=== PATIENT | female | born 1980 | race Hispanic/Latino ===

== ENCOUNTER 2018-07-12 21:26 | Inpatient (IN) | payer SELFPAY ==
[~2018-07-12] VITALS: Ht 152.4 cm; Wt 63.8 kg
[2018-07-12] MEDS ORDERED: LIDOCAINE HCL 1% LOCAL INJ 20 ML VIAL INJ ONE (21:45)
[2018-07-12] MEDS ORDERED: AZTREONAM 1 GM/NS 50 ML 50 ML IV SCH (22:00)
[2018-07-12 22:47] LABS: BASOPHILS % 0.2 % (0.0-1.0); EOSINOPHILS # (AUTO) 0.1 (0.0-0.4); HEMATOCRIT 31.8 % (34.2-44.1); HEMOGLOBIN 10.5 g/dL (12.0-16.0); LYMPHOCYTES # (AUTO) 2.2 (1.0-3.2); LYMPHOCYTES % 24.9 % (18.0-39.1); MEAN CORPUSCULAR HEMOGLOBIN 26.4 pg (28-32); MEAN CORPUSCULAR VOLUME 80.1 fL (81-99); MONOCYTES # (AUTO) 0.9 (0.2-0.8); MONOCYTES % 10.2 % (4.4-11.3); NEUTROPHILS # (AUTO) 5.7 (2.1-6.9); NEUTROPHILS % 63.1 % (38.7-80.0); PLATELET COUNT 262 x10e3/uL (140-360); RED BLOOD COUNT 3.97 x10e6/uL (3.6-5.1); RED CELL DISTRIBUTION WIDTH 14.8 % (11.7-14.4)
[2018-07-12] MEDS ORDERED: AZTREONAM 1 GM VIAL ONE (22:53)
[2018-07-12] MEDS ORDERED: SODIUM CHLORIDE 0.9% 50ML 50 ML ONE (22:53)
[2018-07-12 22:57] LABS: CLARITY,URINE HAZY (CLEAR); COLOR,URINE YELLOW (YELLOW); LEUKOCYTE ESTERASE ,URINE NEGATIVE (NEGATIVE)
[2018-07-12 22:58] LABS: AMPHETAMINES SCREEN,URINE NEGATIVE (NEGATIVE); BENZODIAZEPINES SCREEN,URINE NEGATIVE (NEGATIVE); BILIRUBIN,URINE NEGATIVE (NEGATIVE); KETONES,URINE NEGATIVE (NEGATIVE); NITRITE,URINE NEGATIVE (NEGATIVE); PHENCYCLIDINE SCREEN,URINE NEGATIVE (NEGATIVE); PROTEIN,URINE DIPSTICK TRACE (NEGATIVE); URINE UROBILINOGEN 0.2 mg/dL (0.2 - 1)
[2018-07-12 22:59] LABS: PREGNANCY TEST, URINE NEGATIVE (NEGATIVE)
[2018-07-12] MEDS: VANCOMYCIN 1GM/NS 250 ML 250 ML IV SCH (23:00)
[2018-07-12 23:09] LABS: ALANINE AMINOTRANSFERASE 21 IU/L (0-55); ALBUMIN 2.8 g/dL (3.5-5.0); ALBUMIN/GLOBULIN RATIO 0.6 (0.8-2.0); ALKALINE PHOSPHATASE 225 IU/L (40-150); ANION GAP 16.5 mmol/L (8-16); BLOOD UREA NITROGEN 10 mg/dL (7-26); BUN/CREATININE RATIO 13 (6-25); CALCIUM 8.7 mg/dL (8.4-10.2); CARBON DIOXIDE 18 mmol/L (22-29); CHLORIDE 102 mmol/L (98-107); EST GLOMERULAR FILTRATION RATE > 60 ML/MIN (60-); GLUCOSE 101 mg/dL (74-118); POTASSIUM 3.5 mmol/L (3.5-5.1); SODIUM 133 mmol/L (136-145)
[2018-07-12 23:14] LABS: BACTERIA,URINE RARE /HPF; EPITHELIAL CELLS,URINE FEW /LPF; RBC,URINE 0-5 /HPF (0-5); WBC,URINE (MAN) 0-5 /HPF (0-5)
[2018-07-12] MEDS ORDERED: ACETAMINOPHEN 325 MG TAB PO PRN (23:30)
--- OUTSIDE RECORDS SUMMARY | 2018-07-12 23:41 | XMS REPORT ---
Author Author [facility] Address Unknown Phone Unavailable Care Team Providers [facility] [place] Floor Service Worker Name Role Phone Unavailable Unavailable Problems This patient has no known problems. Allergies, Adverse Reactions, Alerts This patient has no known allergies or adverse reactions. Medications This patient has no known medications. Encounters Start Date/Time End Date/Time Encounter Type Admission Type Attending [facility] Facility Care Department Encounter ID 2018-05-06 00:00:00 2018-05-07 00:00:00 [facility] [id number]
[2018-07-13] VITALS (7 sets, daily range): BP systolic 118–158; BP diastolic 76–99
[2018-07-13] MEDS: SODIUM CHLORIDE 0.9% 1000ML 1,000 ML IV SCH ×4 (01:00→19:16)
[2018-07-13] MEDS: ONDANSETRON HCL INJ 2 MG/ML VIAL IV PRN ×3 (05:32→10:37)
[2018-07-13] MEDS: MORPHINE SULFATE 2 MG/ML SYR IV PRN ×6 (05:32→19:10)
[2018-07-13 07:42] LABS: BASOPHILS % 0.4 % (0.0-1.0); EOSINOPHILS % 0.4 % (0.0-6.0); HEMATOCRIT 31.4 % (34.2-44.1); HEMOGLOBIN 10.2 g/dL (12.0-16.0); LYMPHOCYTES # (AUTO) 1.6 (1.0-3.2); MEAN CORPUSCULAR HEMOGLOBIN 26.5 pg (28-32); MEAN CORPUSCULAR HGB CONC 32.5 g/dL (31-35); MEAN CORPUSCULAR VOLUME 81.6 fL (81-99); MONOCYTES # (AUTO) 0.9 (0.2-0.8); MONOCYTES % 13.2 % (4.4-11.3); NEUTROPHILS # (AUTO) 4.2 (2.1-6.9); NEUTROPHILS % 61.4 % (38.7-80.0); PLATELET COUNT 295 x10e3/uL (140-360); RED BLOOD COUNT 3.85 x10e6/uL (3.6-5.1); RED CELL DISTRIBUTION WIDTH 15.1 % (11.7-14.4)
[2018-07-13 08:15] LABS: ALANINE AMINOTRANSFERASE 23 IU/L (0-55); ALBUMIN 2.5 g/dL (3.5-5.0); ALBUMIN/GLOBULIN RATIO 0.5 (0.8-2.0); ALKALINE PHOSPHATASE 204 IU/L (40-150); ANION GAP 13.7 mmol/L (8-16); BLOOD UREA NITROGEN 9 mg/dL (7-26); BUN/CREATININE RATIO 13 (6-25); CALCIUM 8.3 mg/dL (8.4-10.2); CARBON DIOXIDE 17 mmol/L (22-29); CHLORIDE 109 mmol/L (98-107); EST GLOMERULAR FILTRATION RATE > 60 ML/MIN (60-); GLUCOSE 95 mg/dL (74-118); POTASSIUM 3.7 mmol/L (3.5-5.1); SODIUM 136 mmol/L (136-145)
[2018-07-13 08:47] LABS: HIV 1&2 AB SCREEN NON-REACTIVE (NONREACTIVE)
--- NOTE | 2018-07-13 09:20 | History and Physical ---
PRIMARY CARE PHYSICIAN: None CHIEF COMPLAINT: Left arm swelling and pain. 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 Had IV use of heroin about 30 minutes before presenting to the hospital with left arm pain at the site and swelling with warmth. The suspected area was infected and needed drainage. In the emergency room, underwent incision and drainage and packing. She is admitted for further evaluation and management. The patient also had subjective fever at home. PAST MEDICAL HISTORY: Normocytic anemia, hypothyroidism, cervical cancer, status post procedure, IV drug use with heroin and abscess. PAST SURGICAL HISTORY: [facility] procedure for cervical cancer. ALLERGIES: PER ELECTRONIC MEDICAL RECORD. FAMILY HISTORY/SOCIAL HISTORY: Patient is single. No alcohol, illicits or cigarettes. MEDICATIONS: Per electronic medical record. REVIEW OF SYSTEMS: Denies any dizziness, chest pain, shortness of breath. Denies any headache, vision changes, leg pain, back pain, chest pain, or shortness of breath. PHYSICAL EXAMINATION VITAL SIGNS: Have been reviewed. GENERAL: A tired-appearing woman resting in bed. HEENT: Anicteric. Pupils respond to light. No oral lesions. CARDIOVASCULAR: Normal S1 and S2. LUNGS: Moderate breath sounds. ABDOMEN: Soft, nontender and nondistended. EXTREMITIES: Left arm is dressing. Clean and dry. Left hand and fingers are all edematous. Left forearm is erythematous. SKIN: Dry. PSYCHIATRIC: Flat affect. NEUROLOGICAL: Alert and oriented times 3. Moving all extremities. LABS: Reviewed. MEDICATIONS: Reviewed. ASSESSMENT: This is a 38-year-old woman with: 1. Left forearm abscess secondary to intravenous drug use. 2. Intravenous drug use. 3. Metabolic acidosis. 4. Microcytic anemia. PLAN 1. Will continue IV vancomycin and IV aztreonam. 2. Follow up cultures. 3. Wound care consultation. 4. Screen for HIV. 5. Monitor closely. IV antibiotics for an additional day and reassess tomorrow. 6. Prophylaxis with SCDs. Job#: [id number] DC
[2018-07-13] MEDS: AZTREONAM 1 GM/NS 50 ML 50 ML IV SCH ×3 (10:05→21:00)
[2018-07-13] MEDS: VANCOMYCIN 1GM/NS 250 ML 250 ML IV SCH ×2 (10:36→21:41)
[2018-07-13] MEDS ORDERED: LIDOCAINE 1% 5ML-MPF INJ STA (17:51)
[2018-07-13] MEDS ORDERED: LIDOCAINE HCL 1% LOCAL INJ 20 ML VIAL INJ SCH (18:00)
--- NOTE | 2018-07-13 19:13 | Operative Report ---
DATE OF PROCEDURE: July 13, 2018 PROCEDURE PERFORMED: Incision, drainage and debridement. HISTORY: Patient is a 38-year-old female patient admitted with an abscess to the left forearm after IV drug abuse. DESCRIPTION OF PROCEDURE: After I explained the procedure, I injected 10 mL of 2% lidocaine. I also gave her 2 mg of IV morphine. After proper anesthetic, I used a number 15 blade, did a wide incision and drainage at the abscess and excisional debridement done. Removed all the nonviable tissue, went through the subcutaneous tissue. I removed part of the viable tissue. There was moderate bleeding controlled with pressure. The wound was irrigated with normal saline, packed with iodoform gauze 4 x 4, Kerlix and tape. Patient tolerated the procedure well. Job#: [id number] EV
--- NOTE | 2018-07-13 22:31 | Consultation ---
DATE OF CONSULTATION: July 13, 2018 WOUND CONSULTATION Thank you, Dr. Beck, for asking me to see this patient. HISTORY OF PRESENT ILLNESS: A 38-year-old female patient with IV drug use through her left forearm. Patient developed an abscess and she came to the emergency room. She had an I and D in the ER. She still has loculated pus with purulent drainage. Wound consult was called. PAST MEDICAL HISTORY: Previous history of drug abuse and abscess in the past. ALLERGIES: PENICILLIN, SULFA, PREDNISONE, CLARITHROMYCIN, AZITHROMYCIN, AMOXICILLIN, AND LEVAQUIN. PHYSICAL EXAMINATION VITAL SIGNS: Height 5 feet, weight 125 pounds, blood pressure . HEAD/ENT: Normal. NECK: No JVD. LUNGS: Clear. ABDOMEN: Soft. Bowel sounds normal. LOWER EXTREMITIES: No edema. Left hand is swollen. Left wrist is swollen. There is a wound on the left anterior wrist with purulent drainage, pinhole opening. ASSESSMENT: Left forearm abscess from intravenous drug abuse. PLAN: We will do wider incision and drainage of the abscess and pack with iodoform gauze. Thank you Dr. Beck for asking me to see this patient. I will follow with you. Job#: [id number]
[2018-07-14 00:45] VITALS: BP 144/90
[2018-07-14] MEDS: MORPHINE SULFATE 2 MG/ML SYR IV PRN (01:05)
== END 2018-07-14 03:30 | disposition left against medical advice (07) | DRG 580 ==
LOC: ER 21:26 → ERHOLD 23:39 → MED/SURG2 07-13 01:34
PROVIDERS: ADMIT Internal Medicine; ATTEND Internal Medicine
PROC: 0H9CXZZ Drainage of Left Upper Arm Skin, External Approach (ICD-10-PCS; principal; 2018-07-12)
PROC: 0J9F0ZZ Drainage of Left Upper Arm Subcutaneous Tissue and Fascia, Open Approach (ICD-10-PCS; 2018-07-13)
DX: L02.414 Cutaneous abscess of left upper limb (principal); E87.2 Acidosis; L03.114 Cellulitis of left upper limb; Z88.1 Allergy status to other antibiotic agents; Z88.0 Allergy status to penicillin; Z88.2 Allergy status to sulfonamides; Z88.8 Allergy status to other drugs, medicaments and biological substances; Z85.41 Personal history of malignant neoplasm of cervix uteri; Z82.49 Family history of ischemic heart disease and other diseases of the circulatory system; F11.10 Opioid abuse, uncomplicated; D50.9 Iron deficiency anemia, unspecified
CPT/HCPCS: 36415; 80053; 80307; 81001; 81025; 83605; 85025; 87040; 87071; 87205; 87390; 99284; G0433; G0435; J2001; J2270; J2405; J3370; J7030